=== PATIENT | female | born 1975 | race Caucasian/White ===

== ENCOUNTER 2017-11-05 12:39 | Emergency (ER) | payer BC, OTHER ==
[~2017-11-05] VITALS: Ht 167.6 cm; Wt 49.9 kg
--- NOTE | 2017-11-05 13:02 | ED Chest Pain ---
General Stated Complaint: L SIDE SHOULDER PAIN/TENDER/PAINFUL BREATHING Source: patient Exam Limitations: no limitations History of Present Illness Date Seen by Provider: Nov 05, 2017 Time Seen by Provider: 13:02 Initial Comments This 42-year-old white female presents complaining of left shoulder pain for the last 2 days now with associated chest pain made worse with taking a deep breath. Patient denies trauma to the left shoulder or chest. The patient stated the left arm pain began 5 days ago and the chest pain 4 days ago. The pain is now limited essentially to the chest. Is described as sharp in nature over the left lateral chest wall is made worse with a deep breath. The patient denies fever, chills, productive cough, shortness of breath, or remarkable radiation of the moderately severe left chest wall pain. Allergies and Home Medications Allergies Coded Allergies: No Known Drug Allergies (Unverified , 11/05/17) Patient Home Medication List Home Medication List Reviewed: Yes Review of Systems Review of Systems Constitutional: No chills, No fever EENTM: No Blurred Vision, No Ear Pain Respiratory: See HPI; Denies Cough, Denies Shortness of Air Cardiovascular: See HPI, Chest Pain (pleuritic and located in the left chest.) ; Denies Irregular Heart Rate, Denies Palpitations Gastrointestinal: Denies Abdominal Pain, Denies Nausea, Denies Vomiting Genitourinary: No Symptoms Reported Musculoskeletal: see HPI; No back pain Skin: No change in color, No rash Psychiatric/Neurological: No Symptoms Reported Endocrine: No Symptoms Reported Hematologic/Lymphatic: No Symptoms Reported Past Jjaulub-Assjeo-Zgvcoe Hx Past Med/Social Hx: Reviewed Nursing Past Med/Soc Hx Patient Social History Recent Foreign Travel: No Contact w/Someone Who Travel: No Physical Exam Vital Signs Vital Signs - First Documented 11/05/17 12:47 Temp 98.3 Pulse 97 Resp 18 B/P (MAP) 130/72 (91) Pulse Ox 98 Capillary Refill : Height, Weight, BMI Height: '" Weight: lbs. oz. kg; BMI Method: General Appearance: No Apparent Distress, WD/WN HEENT: Normal ENT Inspection Neck: Normal Inspection Respiratory: Lungs Clear, Other (there is tenderness palpation of the left chest wall over approximately the sixth rib in the anterior axillary line) Cardiovascular: Regular Rate, Rhythm, No Murmur Gastrointestinal: Normal Bowel Sounds, Non Tender, Soft Extremity: Normal Inspection, Normal Range of Motion, Other (there does not appear to be any swelling, erythema, or tenderness on examination of the left shoulder.) Neurologic/Psychiatric: Alert, No Motor/Sensory Deficits, Normal Mood/Affect Skin: Normal Color, Warm/Dry Progress/Results/Core Measures Results/Orders Lab Results Laboratory Tests Test 11/05/17 13:23 Range/Units White Blood Count 13.9 H 4.3-11.0 10^3/uL Red Blood Count 4.52 4.35-5.85 10^6/uL Hemoglobin 13.5 11.5-16.0 G/DL Hematocrit 39 35-52 % Mean Corpuscular Volume 86 80-99 FL Mean Corpuscular Hemoglobin 30 25-34 PG Mean Corpuscular Hemoglobin Concent 35 32-36 G/DL Red Cell Distribution Width 13.8 10.0-14.5 % Platelet Count 320 130-400 10^3/uL Mean Platelet Volume 10.0 7.4-10.4 FL Neutrophils (%) (Auto) 71 42-75 % Lymphocytes (%) (Auto) 19 12-44 % Monocytes (%) (Auto) 8 0-12 % Eosinophils (%) (Auto) 2 0-10 % Basophils (%) (Auto) 0 0-10 % Neutrophils # (Auto) 9.9 H 1.8-7.8 X 10^3 Lymphocytes # (Auto) 2.6 1.0-4.0 X 10^3 Monocytes # (Auto) 1.2 H 0.0-1.0 X 10^3 Eosinophils # (Auto) 0.3 0.0-0.3 10^3/uL Basophils # (Auto) 0.0 0.0-0.1 10^3/uL D-Dimer 2.23 H 0.00-0.49 UG/ML Troponin I < 0.30 <0.30 NG/ML My Orders Orders - SRAVANTHI NICOLAS MD Shoulder, Left, 3 Views (11/05/17 12:55) Chest Pa/Lat (2 View) (11/05/17 12:55) Cbc With Automated Diff (11/05/17 13:03) Fibrin Degradation Products (11/05/17 13:03) Ekg Tracing (11/05/17 13:11) Troponin I (11/05/17 13:11) Ns Iv 1000 Ml (Sodium Chloride 0.9%) (11/05/17 14:00) Ct Angio Chest W (11/05/17 13:47) Enoxaparin Injection (Lovenox Injection) (11/05/17 14:00) Iohexol Injection (Omnipaque 350 Mg/Ml 1 (11/05/17 14:15) Ns (Ivpb) (Sodium Chloride 0.9%) (11/05/17 14:15) Medications Given in ED Current Medications Medications Dose Ordered Sig/Marilia Route Start Time Stop Time Status Last Admin Dose Admin Iohexol 150 ml ONCE ONCE IV 11/05/17 14:15 11/05/17 14:16 DC 11/05/17 14:10 125 ML Sodium Chloride 250 ml ONCE ONCE IV 11/05/17 14:15 11/05/17 14:16 DC 11/05/17 14:10 80 ML Vital Signs/I&O 11/05/17 12:47 Temp 98.3 Pulse 97 Resp 18 B/P (MAP) 130/72 (91) Pulse Ox 98 Progress Progress Note : Time: 15:15 Progress Note Patient's plain films of the left shoulder and chest were unremarkable. The patient had a positive d-dimer. CT a did not demonstrate evidence of a pulmonary emboli. 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 I discussed findings with patient. I recommended close follow-up be undertaken with pulmonology. She is agreeable to this treatment plan. She declined any pain medication. Departure Impression Primary Impression: Chest pain not due to acute coronary syndrome Disposition: 01 HOME, SELF-CARE Condition: Unchanged Departure-Patient Inst. Decision time for Depature: 15:18 Referrals: EZEKIEL CARO,LOCAL PHYSICIAN (PCP) Primary Care Physician Patient Instructions: Chest Pain That Is Not Caused by the Heart (DC) Add. Discharge Instructions: Follow-up with Dr. Caro tomorrow. Return if any problems or questions. SRAVANTHI NICOLAS MD Nov 05, 2017 13:02
[2017-11-05 13:29] LABS: BASOPHILS % (AUTO) 0 % (0-10); EOSINOPHILS # (AUTO) 0.3 10^3/uL (0.0-0.3); EOSINOPHILS % (AUTO) 2 % (0-10); HEMATOCRIT 39 % (35-52); HEMOGLOBIN 13.5 G/DL (11.5-16.0); LYMPHOCYTES # (AUTO) 2.6 X 10^3 (1.0-4.0); LYMPHOCYTES % (AUTO) 19 % (12-44); MEAN CORPUSCULAR HEMOGLOBIN 30 PG (25-34); MEAN CORPUSCULAR HGB CONC 35 G/DL (32-36); MEAN CORPUSCULAR VOLUME 86 FL (80-99); MONOCYTES # (AUTO) 1.2 X 10^3 (0.0-1.0); MONOCYTES % (AUTO) 8 % (0-12); NEUTROPHILS # (AUTO) 9.9 X 10^3 (1.8-7.8); NEUTROPHILS % (AUTO) 71 % (42-75); PLATELET COUNT 320 10^3/uL (130-400); RED BLOOD COUNT 4.52 10^6/uL (4.35-5.85); RED CELL DISTRIBUTION WIDTH 13.8 % (10.0-14.5); WHITE BLOOD COUNT 13.9 10^3/uL (4.3-11.0)
--- NOTE | 2017-11-05 13:41 | Diagnostic Imaging Report ---
INDICATION: Chest pain. Left shoulder pain EXAMINATION: PA and lateral views of the chest. FINDINGS: The heart size and vascularity are normal. Lungs are clear. There is no effusion. There is no acute bony abnormality. IMPRESSION: No acute abnormality is seen. Dictated by: Dictated on workstation # [id number]
--- NOTE | 2017-11-05 13:43 | Diagnostic Imaging Report ---
PATIENT HISTORY: Pain in chest and left shoulder.. TECHNIQUE: Three views of the left shoulder. COMPARISON: None. FINDINGS: No acute fracture or dislocation is seen in the left shoulder. There appears to be mild offset at the left acromioclavicular joint. This appears to be symmetric on the concurrent chest radiographs. Alignment otherwise appears normal. The joint spaces are otherwise preserved. IMPRESSION: 1. Mild offset at the left acromioclavicular joint is most likely an anatomic variant and appears symmetric on the concurrent chest radiograph. Recommend clinical correlation for history of trauma and point tenderness at this site. 2. No acute fracture seen in the left shoulder. Dictated by: Dictated on workstation # [id number]
[2017-11-05] MEDS ORDERED: NS IV 1000 ML 1,000 ML IV SCH (14:00)
[2017-11-05] MEDS ORDERED: ENOXAPARIN 60 MG/0.6 ML (LOVENOX) SYR SC ONE (14:00)
[2017-11-05] MEDS ORDERED: IOHEXOL 350 MG/ML 150 ML (OMNIPAQUE 350) VIAL IV ONE (14:15)
[2017-11-05] MEDS ORDERED: NS 250 ML (IVPB) BAG IV ONE (14:15)
--- NOTE | 2017-11-05 14:47 | Diagnostic Imaging Report ---
PROCEDURE: CT angiography of the chest with contrast. TECHNIQUE: Multiple contiguous axial images were obtained through the chest after uneventful bolus administration of intravenous contrast. 2D reconstructed CTA MIP acquisitions were also performed. INDICATION: Shortness of breath, chest pain Comparison: Chest x-ray from 11/05/2017 Findings: The pulmonary arteries are diagnostic to the segmental level. No filling defects are seen to indicate pulmonary embolus. The aorta appears normal. There is no dissection or aneurysm. The heart is normal in size. There is a oval 2.8 x 0.8 cm lesion overlying the pericardium at the apex of the heart (image 112, series 2), with fat density internally and adjacent calcification. There are mild to moderate emphysematous changes throughout the lungs bilaterally, with apical predominance. There is a 5 mm nodule in the right upper lobe laterally (image 46 series 2). There is dependent groundglass and airspace opacity in the left lung, with a minimal left pleural effusion. Impression: 1. No pulmonary embolus 2. Oval fatty lesion abutting the pericardium, has the appearance of fat necrosis, which can be a source of pain. 3. Mild to moderate emphysematous changes in the lungs bilaterally, with apical predominance. 4. 5 mm nodule in the right upper lobe, consider followup CT in 6-12 months. Dictated by: Dictated on workstation # [id number]
[2017-11-05 15:28] VITALS: BP 111/77
== END 2017-11-05 15:28 | disposition home or self-care (01) ==
LOC: ER 12:41
DX: I24.9 Acute ischemic heart disease, unspecified (principal); R07.89 Other chest pain; M25.512 Pain in left shoulder
CPT/HCPCS: 36415; 71046; 71275; 73030; 84484; 85025; 85379; 93005; 96360

== ENCOUNTER → 2017-11-28 | Outpatient (CLI) | payer BC ==
[2017-11-28 11:15] LABS: ABG OXYGEN SATURATION 99 % (94-100); ABG PCO2 32 MMHG (35-45); ABG PH 7.44 (7.37-7.43); ABG PO2 108 MMHG (79-93); ABG TCO2 22.6 MMOL/L (21.0-31.0); ALLENS TEST YES-POS; INSPIRED O2 RA; PATIENT TEMP 97.9; VENTILATOR NO
== END ==
LOC: RT 10:51
PROVIDERS: ATTEND Nurse Practitioner Family
DX: R91.8 Other nonspecific abnormal finding of lung field (principal); J43.9 Emphysema, unspecified; J30.9 Allergic rhinitis, unspecified; Z72.0 Tobacco use
CPT/HCPCS: 36600; 82805

== ENCOUNTER 2017-11-29 06:45 | Outpatient (CLI) | payer BC ==
[~2017-11-29] VITALS: Ht 167.6 cm; Wt 49.9 kg
== END 2017-11-29 13:21 | disposition home or self-care (01) ==
LOC: PREOP 06:45
PROVIDERS: ATTEND Internal Medicine Critical Care Medicine
DX: Z01.818 Encounter for other preprocedural examination (principal)

== ENCOUNTER 2017-11-30 08:46 | Day surgery (SDC) | payer BC ==
[~2017-11-30] VITALS: Ht 167.6 cm; Wt 49.9 kg
[2017-11-30] MEDS ORDERED: NS IV 500 ML 500 ML ONE (09:00)
[2017-11-30] MEDS ORDERED: NS IV 500 ML 500 ML IV PRN (09:01)
[2017-11-30] MEDS ORDERED: fentaNYL INJECTION 100 MCG/2 ML AMP IVP ONE (09:15)
[2017-11-30] MEDS ORDERED: MIDAZOLAM 2 MG/2 ML (VERSED) VIAL IVP ONE (09:15)
[2017-11-30 09:18] VITALS: BP 99/71
[2017-11-30] MEDS ORDERED: MIDAZOLAM 2 MG/2 ML (VERSED) VIAL ONE ×4 (11:12)
[2017-11-30] MEDS ORDERED: fentaNYL INJECTION 100 MCG/2 ML AMP ONE ×2 (11:13)
--- NOTE | 2017-11-30 12:28 | Pulmonary Procedures ---
Pulmonary Procedures Date of Procedure Date of Service: Nov 30, 2017 Bronch Bronchoscopy with fleuroscopy from the RML a bronchoalveolar lavage (BAL), transbronchial washes and, brushes were obtained. From the R[facility] transbronchial brush, washes and transbronchial forcep bx were also obtained. Preop DX Cystic lung disease Postop DX: same, No endobronchial mass Complications: none After informed consent obtained and formal time out pt was sedated using Fentanyl and Versed. Bronchoscope was advanced through the nare and vocal cords. 1% lidocaine was used to anesthetize vocal cords, epiglottis, delmi, and left/right main stem bronchus. An anatomical tour was undertaken down to the segmental bronchi bilaterally. No endobronchial lesions noted. From the RML a bronchoalveolar lavage (BAL), transbronchial washes and, brushes were obtained. From the R[facility] transbronchial brush, washes and transbronchial forcep bx were also obtained. Pt tolerated procedure well. No complications noted. Stat CXR is pending. EZEKIEL WHITTAKER DO Nov 30, 2017 12:28
--- NOTE | 2017-11-30 12:34 | Progress Note-Pre Operative ---
Pre-Operative Progress Note H&P Reviewed The H&P was reviewed, patient examined and no changes noted. Time Seen by Provider: 11:00 Date H&P Reviewed: Nov 30, 2017 Time H&P Reviewed: 11:00 Pre-Operative Diagnosis: cystic lung EZEKIEL WHITTAKER DO Nov 30, 2017 12:34
--- NOTE | 2017-11-30 12:35 | Pre-Op Note & Conscious Sedat ---
Pre-Operative Progress Note H&P Reviewed The H&P was reviewed, patient examined and no changes noted. Date H&P Reviewed: Nov 30, 2017 Time H&P Reviewed: 12:34 Conscious Sedation Pre-Proced Time 11:00 ASA Score 2 For ASA 3 and 4: Consider anesthesia and medical clearance. Also, for patients with a history of failed moderate sedation consider anesthesia. Airway Lungs Heart ASA score ASA 1: a normal healthy patient ASA 2: a patient with a mild systemic disease (mid diabetes, controlled hypertension, obesity ASA 3: a patient with a severe systemic disease that limits activity (angina , COPD, prior Myocardial infarction) ASA 4: a patient with an incapacitating disease that is a constant threat to life (CHF, renal failure) ASA 5: a moribund patient not expected to survive 24 hrs. (ruptured aneurysm) ASA 6: a declared brain patient whose organs are being harvested. For emergent operations, add the letter E after the classification Mallampati Classification Grade 2 Sedation Plan Analgesia, Amnesia, Plan communicated to team members, Discussed options with patient/fam, Discussed risks with patient/fam The patient is an appropriate candidate to undergo the planned procedure, sedation, and anesthesia. The patient immediately re-assessed prior to indication. EZEKIEL WHITTAKER DO Nov 30, 2017 12:35
[2017-11-30 12:45] VITALS: BP 87/59
--- NOTE | 2017-11-30 13:00 | Diagnostic Imaging Report ---
INDICATION: Post bronchoscopy chest x-ray. Portable chest at 12:28 PM FINDINGS: There is some infiltrate present in the right lower lung. There is no effusion or pneumothorax. IMPRESSION: Infiltrate in right lower lung, new since 11/05/2017. Dictated by: Dictated on workstation # [id number]
[2017-11-30 13:01] LABS: BASOPHILS % (AUTO) 0 % (0-10); EOSINOPHILS # (AUTO) 0.2 10^3/uL (0.0-0.3); EOSINOPHILS % (AUTO) 2 % (0-10); HEMATOCRIT 33 % (35-52); HEMOGLOBIN 11.2 G/DL (11.5-16.0); LYMPHOCYTES # (AUTO) 2.9 X 10^3 (1.0-4.0); LYMPHOCYTES % (AUTO) 41 % (12-44); MEAN CORPUSCULAR HEMOGLOBIN 29 PG (25-34); MEAN CORPUSCULAR HGB CONC 34 G/DL (32-36); MEAN CORPUSCULAR VOLUME 86 FL (80-99); MEAN PLATELET VOLUME 9.8 FL (7.4-10.4); MONOCYTES # (AUTO) 0.5 X 10^3 (0.0-1.0); MONOCYTES % (AUTO) 7 % (0-12); NEUTROPHILS # (AUTO) 3.5 X 10^3 (1.8-7.8); NEUTROPHILS % (AUTO) 49 % (42-75); PLATELET COUNT 271 10^3/uL (130-400); RED BLOOD COUNT 3.81 10^6/uL (4.35-5.85); RED CELL DISTRIBUTION WIDTH 13.6 % (10.0-14.5); WHITE BLOOD COUNT 7.1 10^3/uL (4.3-11.0)
[2017-11-30 13:15] VITALS: BP 91/64
[2017-11-30 13:22] LABS: ALANINE AMINOTRANSFERASE 10 U/L (0-55); ALBUMIN 3.9 GM/DL (3.2-4.5); ALKALINE PHOSPHATASE 66 U/L (40-136); BILIRUBIN,TOTAL 0.3 MG/DL (0.1-1.0); BUN/CREATININE RATIO 20; CALCIUM 8.9 MG/DL (8.5-10.1); CARBON DIOXIDE 23 MMOL/L (21-32); CHLORIDE 108 MMOL/L (98-107); CREATININE SERUM 0.66 MG/DL (0.60-1.30); GFR ESTIMATED > 60; GLUCOSE 92 MG/DL (70-105); SODIUM 138 MMOL/L (135-145); TOTAL PROTEIN 6.8 GM/DL (6.4-8.2)
[2017-11-30 14:20] VITALS: BP 91/64
[2017-11-30 14:49] LABS: BODY FLUID APPEARENCE SLT CLDY; BODY FLUID COLOR COLORLESS; BODY FLUID SOURCE BRONCH WASH; BODY FLUID WBC TOTAL COUNT 118 /uL
[2017-11-30 14:50] LABS: BODY FLUID RBC COUNT 45 /uL
[2017-11-30 15:08] LABS: BODY FLUID SOURCE BRONCH LAVAGE
[2017-11-30 15:10] LABS: BODY FLUID APPEARENCE MOD CLDY; BODY FLUID COLOR COLORLESS; BODY FLUID RBC COUNT 15 /uL; BODY FLUID WBC TOTAL COUNT 335 /uL
[2017-11-30 15:36] LABS: BF OTHER CELLS 66 %; LYMPHOCYTES,BODY FLUID 3 %
[2017-11-30 15:36] LABS: BF OTHER CELLS 89 %; LYMPHOCYTES,BODY FLUID 6 %
--- NOTE | 2017-11-30 17:20 | Diagnostic Imaging Report ---
INDICATION: Bronchoscopy FINDINGS / IMPRESSION: 74 seconds of fluoroscopy and a single digital image of the right lower chest was obtained during bronchoscopy procedure performed by Dr. Caro. Dictated by: Dictated on workstation # [id number]
== END 2017-11-30 13:30 | disposition home or self-care (01) ==
LOC: ENDO 08:46
PROVIDERS: ATTEND Internal Medicine Critical Care Medicine
DX: J98.4 Other disorders of lung (principal); J43.9 Emphysema, unspecified; J30.9 Allergic rhinitis, unspecified; Z72.0 Tobacco use
CPT/HCPCS: 36415; 71045; 80053; 84703; 85025; 86038; 86200; 86235; 86430; 86703; 87070; 87101; 87116; 87205; 88112; 88305; 88312; 89051; 94640

== ENCOUNTER → 2017-12-11 | Outpatient (CLI) | payer BC ==
[~2017-12-11] MED LIST: RT-ALBUTEROL SULF 2.5 MG/3 ML PRE-MIX VIAL INH ONE
== END ==
LOC: RT 08:23
PROVIDERS: ATTEND Nurse Practitioner Family
DX: R91.8 Other nonspecific abnormal finding of lung field (principal); J43.9 Emphysema, unspecified; J30.9 Allergic rhinitis, unspecified; Z72.0 Tobacco use
CPT/HCPCS: 94060; 94640; 94726; 94729